=== PATIENT | male | born 1940 | race Caucasian/White ===

== ENCOUNTER 2016-08-05 12:41 | Emergency (ER) | payer OTHER, MEDICARE ==
[~2016-08-05] VITALS: Ht 180.3 cm; Wt 104.3 kg
[~2016-08-05 12:41] MED LIST: ASPIRIN EC81 M1 PO; CELEBREX200 M1 PO; COMBIGAN EYE DRO5 ML OP; ENDOCET 325 MG-1 TA1 PO; LIPITOR10 M1 PO; LOTREL 5-10 MG1 EACH PO; METFORMIN HCL1000 M1 PO; TOBRAMYCIN AND10 ML; XALATAN2.5 ML OPH
--- NOTE | 2016-08-05 15:22 | RADIOLOGY REPORT ---
EXAMINATION: XR KNEE, RIGHT CLINICAL INFORMATION: Right knee pain after hit with a car door today. COMPARISON: None. TECHNIQUE: AP, bilateral oblique, and lateral views of the right knee. FINDINGS: There is no fracture, malalignment, or joint effusion. There is mild tricompartmental osteoarthritis. There is extensive streaky change in the medial and anterior soft tissues consistent with a soft tissue injury. IMPRESSION: Medial and anterior soft tissue injury. No fracture. Mild tricompartmental osteoarthritis.
--- NOTE | 2016-08-05 15:25 | ED UPPER/LOWER EXTREMITY COMPL ---
History of Present Illness General Chief Complaint: Lower Extremity Problems Stated Complaint: RT KNEE SWELLING Source: patient Exam Limitations: no limitations Vital Signs & Intake/Output Vital Signs & Intake/Output Vital Signs Date Time Temp Pulse Resp B/P Pulse O2 O2 Flow FiO2 Ox Delivery Rate 08/05 1638 98.1 67 17 156/73 96 Room Air 08/05 1608 97.4 95 18 159/78 97 Room Air 08/05 1249 97.3 78 14 169/90 99 Room Air Allergies Coded Allergies: NO KNOWN ALLERGIES (10/24/15) Reconcile Medications Amlodipine Besylate/Benazepril (Lotrel 5-10 MG Capsule) 5 MG-10 MG CAPSULE 1 CAP PO DAILY BP (Reported) Aspirin (Ecotrin*) 81 MG TABLET.DR 1 TAB PO DAILY HEART HEALTH (Reported) Atorvastatin Calcium (Lipitor) 10 MG TABLET 1 TAB PO DAILY CHOLESTEROL ( Reported) Brimonidine Tartrate/Timolol (Combigan Eye Drops) 0.2 %-0.5 % DROPS 1 DROP OP BID EYE (Reported) Celecoxib (Celebrex) 200 MG CAPSULE 1 CAP PO DAILY ARTHRITIS (Reported) Latanoprost (Xalatan) 0.005 % DROPS 1 GTT OPH QPM EYE (Reported) Metformin HCl 1,000 MG TABLET 1 TAB PO BID DIABETES (Reported) Triage Note: 75 Y/O MALE C/O R KNEE SWELLING SINCE CAR DOOR CLOSED ON LEG THIS MORNING. PT DENIES PAIN. STATES HE HAS BEEN AMBULATORY SINCE BUT HE IS WORRIED ABOUT THE SWELLING. Triage Nurses Notes Reviewed? yes HPI: This patient is a 75-year-old male who presented to the emergency department today for evaluation of swelling to his right knee. The patient reported that he was getting out of his car this morning when the car door hit him on the outside of the right knee. He reported that he went to his grandchildren's swimming class and noticed afterward that the inside of his right knee with swelling. He denied any pain, but reported that it feels, "tight." He denied any numbness or tingling. Able to ambulate without difficulty. Ice helped. He denied any other associated symptoms or complaints. (JADA KHAN,SHAKA) Past History Travel History Traveled to [place] past 21 day No Medical History Any Pertinent Medical History? 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 No (JADA KHAN,SHAAK) Review of Systems Review of Systems Constitutional: Reports: no symptoms. EENTM: Reports: no symptoms. Respiratory: Reports: no symptoms. Cardiovascular: Reports: no symptoms. Gastrointestinal/Abdominal: Reports: no symptoms. Genitourinary: Reports: no symptoms. Musculoskeletal: Reports: no symptoms. Skin: Reports: see HPI. Neurological/Psychological: Reports: no symptoms. All Other Systems: Reviewed and Negative (JADA KHAN,SHAKA) Physical Exam Physical Exam General Appearance: well developed/nourished, no apparent distress, alert, awake Comments: Well-developed well-nourished person in no acute distress HEENT: Head normocephalic, moist mucous membranes Neck: Supple, no lymphadenopathy Back: Normal gait Respiratory: No respiratory distress. Speaking in full sentences Right knee: Edema with no overlying erythema or ecchymosis to the medial aspect of the knee. Mild tenderness to palpation over the medial aspect of the knee. Full range of motion at the knee. No bony or muscular deformities appreciated. Neuro: Alert and oriented x3 Psych: Mood affect normal, normal memory normal judgment. Skin: Warm and dry, no rash on exposed skin (JADA KHAN,SHAKA) Progress Differential Diagnosis: arterial insufficiency, cellulitis, compartment syndrome , contusion, dislocation, DVT, fracture, gout, septic arthritis, sprain, tendon injury Plan of Care: Orders Procedure Date/time Status US-UNILATERAL VENOUS DOPPLER 08/05 1506 Active Diagnostic Imaging: Viewed by Me: Radiology Read, Ultrasound. Discussed w/RAD: Radiology Read, Ultrasound. Radiology Impression: PATIENT: SALVADOR ANDERSEN PRESENT AGE: 75 PATIENT ACCOUNT NO: [id number] : 40 LOCATION: [facility] ORDERING PHYSICIAN: SHAKA ELIAS PA-C SERVICE DATE: 08/05/16-4040 EXAM TYPE: RAD - XRY-KNEE COMPLETE RIGHT EXAMINATION: XR KNEE, RIGHT CLINICAL INFORMATION: Right knee pain after hit with a car door today. COMPARISON: None. TECHNIQUE: AP, bilateral oblique, and lateral views of the right knee. FINDINGS: There is no fracture, malalignment, or joint effusion. There is mild tricompartmental osteoarthritis. There is extensive streaky change in the medial and anterior soft tissues consistent with a soft tissue injury. IMPRESSION: Medial and anterior soft tissue injury. No fracture. Mild tricompartmental osteoarthritis. DICTATED BY: JONATHAN TOUSSAINT MD DATE/TIME DICTATED:08/05/161510 LIME VAT TENDER:GREWAL DATE/TIME TRANSCRIBED:08/05/161510 CONFIDENTIAL, DO NOT COPY WITHOUT APPROPRIATE AUTHORIZATION. <Electronically signed in Other Vendor System> SIGNED BY: JONATHAN TOUSSAINT MD 08/05/16 1522, PATIENT: SALVADOR ANDERSEN PRESENT AGE: 75 PATIENT ACCOUNT NO: [id number] : 40 LOCATION: [facility] ORDERING PHYSICIAN: SHAKA ELIAS PA-C SERVICE DATE: 08/05/16 EXAM TYPE: US - US-UNILATERAL VENOUS DOPPLER EXAMINATION: US TRIPLEX LOWER EXTREMITY, RIGHT CLINICAL INFORMATION: Trauma with right lower extremity edema COMPARISON: None TECHNIQUE: Color-flow triplex imaging with spectral analysis and compression Doppler were performed on the right lower extremity. FINDINGS: Respiratory variation, normal compression and augmented flow are noted throughout the lower extremity. The visualized common femoral vein, superficial femoral vein, profunda femoral vein, popliteal vein and midcalf peroneal and posterior tibial venous segments show no evidence of deep venous thrombosis. There is no Kessler's cyst. A right knee effusion is present. IMPRESSION: No evidence of deep venous thrombosis involving the right lower extremity. A right knee effusion is present. DICTATED BY: JUDITH ALCARAZ MD DATE/TIME DICTATED:08/05/161547 LIME VAT TENDER:JULIUS DATE/TIME TRANSCRIBED:08/05/161547 CONFIDENTIAL, DO NOT COPY WITHOUT APPROPRIATE AUTHORIZATION. <Electronically signed in Other Vendor System> SIGNED BY: JUDITH ALCARAZ MD 08/05/16 8997 (JADA KHAN,SHAKA) Departure Departure Disposition: HOME OR SELF CARE Condition: Stable Clinical Impression Primary Impression: Contusion Qualifiers: Encounter type: initial encounter Contusion area: knee Laterality: right Qualified Code: S80.01XA - Contusion of right knee, initial encounter Referrals: JOSE MIDDLETON,ARELI FLOREZ DO (PCP/Family) Additional Instructions: Elevate your knee when possible. Apply ice to the affected area as needed. Avoid any strenuous activity. You may take [id number] Motrin for pain and inflammation. Follow up with the primary care physician whose information has been provided to you in this packet war with your personal orthopedist. Return for any worsening symptoms or concerns. Departure Forms: Customer Survey General Discharge Information (JADA KHAN,SHAKA) PA/TOOL CLERK Co-Sign Statement Statement: ED Attending supervision documentation- [X] I saw and evaluated the patient. I have also reviewed all the pertinent lab results and diagnostic results. I agree with the findings and the plan of care as documented in the PA's/TOOL CLERK's documentation. [X] I have reviewed the ED Record and agree with the PA's/TOOL CLERK's documentation. [] Additions or exceptions (if any) to the PAs/TOOL CLERK's note and plan are summarized below: [] (MIMI MIDDLETON,POORNIMA Demarco)
--- NOTE | 2016-08-05 15:53 | ULTRASOUND REPORT ---
EXAMINATION: US TRIPLEX LOWER EXTREMITY, RIGHT CLINICAL INFORMATION: Trauma with right lower extremity edema COMPARISON: None TECHNIQUE: Color-flow triplex imaging with spectral analysis and compression Doppler were performed on the right lower extremity. FINDINGS: Respiratory variation, normal compression and augmented flow are noted throughout the lower extremity. The visualized common femoral vein, superficial femoral vein, profunda femoral vein, popliteal vein and midcalf peroneal and posterior tibial venous segments show no evidence of deep venous thrombosis. There is no Kessler's cyst. A right knee effusion is present. IMPRESSION: No evidence of deep venous thrombosis involving the right lower extremity. A right knee effusion is present.
[2016-08-05 16:38] VITALS: BP 156/73
== END 2016-08-05 16:39 ==
LOC: ERH 12:41
DX: S80.01XA Contusion of right knee, initial encounter (principal); W22.8XXA Striking against or struck by other objects, initial encounter; Y93.89 Activity, other specified; Y92.9 Unspecified place or not applicable; R60.0 Localized edema
CPT/HCPCS: 73562-RT